=== PATIENT | male | born 1975 | race American Indian/Alaskan Native ===

== ENCOUNTER 2019-11-20 12:10 | Outpatient (CLI) | payer BC ==
--- NOTE | 2019-11-20 15:20 | XRay Report ---
CHEST 2 VIEWS INDICATION: SARCOIDOSIS. COMPARISON: None available. FINDINGS: Support devices: None. Heart: Within normal limits. Pulmonary vasculature and damaris: Indistinct pulmonary vessels and bilateral hilar fullness. A right hi lar mass measures 2+ centimeters. Lungs/pleura: Bilateral upper lobe reticular interstitial opacities. The lung bases are clear. No ple ural effusion. No pneumothorax. Additional findings: Dextroscoliosis. IMPRESSION: 1. A right hilar mass and bilateral upper lobe reticular interstitial opacities. 2. Recommend CT Chest for further evaluation of the right hilar mass. Signer Name: Karthik Rodríguez MD Signed: 11/20/2019 3:16 PM Workstation Name: [id number]
== END 2019-11-20 12:11 | disposition home or self-care (01) ==
LOC: XRAY 12:10
PROVIDERS: ATTEND Dermatology
DX: D86.0 Sarcoidosis of lung (principal); J98.4 Other disorders of lung
CPT/HCPCS: 71046

== ENCOUNTER 2019-11-25 12:16 | Outpatient (CLI) | payer BC | END 2019-11-25 12:17 | disposition home or self-care (01) | LOC: PF 12:16 | PROVIDERS: ATTEND Dermatology | DX: D86.0 Sarcoidosis of lung (principal) | CPT/HCPCS: 94010; 94726; 94727; 94729 ==

== ENCOUNTER 2020-05-13 12:22 | Outpatient (CLI) | payer BC ==
--- NOTE | 2020-05-13 14:37 | Cat Scan Report ---
CT CHEST WITHOUT CONTRAST INDICATION / CLINICAL INFORMATION: R91.8 Other nonspecific abnormal finding of lung field/. TECHNIQUE: Axial CT images were obtained through the chest without contrast. Sagittal and coronal reformatted im ages. All CT scans at this location are performed using CT dose reduction for ALARA by means of autom ated exposure control. COMPARISON: Chest x-ray 11/20/2019 FINDINGS: HEART: No significant abnormality. THORACIC AORTA: No significant abnormality. MEDIASTINUM and DANICA: There are multiple enlarged lymph nodes throughout the mediastinum including th e paratracheal chain, AP window, subcarinal chain and bilateral hilar chains. One of the largest lymp h nodes in the AP window measures 3.6 x 1.7 cm. LUNGS: Mild to moderate reticulonodular infiltrates are identified in both lungs, primarily the upper lung zones. No dominant lung mass or consolidation. PLEURA: No significant pleural effusion. No pneumothorax. SKELETAL SYSTEM: No suspicious bony lesion is detected. UPPER ABDOMEN: No significant abnormality. No obvious adenopathy. ADDITIONAL FINDINGS: None IMPRESSION: Multiple enlarged mediastinal lymph nodes and bilateral reticular nodular infiltrates primarily in t he upper lung zones. These findings suggest sarcoid although a neoplastic process is not excluded. Pl ease correlate with the patient's history. Correlation with previous CTs may prove helpful if availab le. Signer Name: Sunday Arroyo Jr, MD Signed: 05/13/2020 2:33 PM Workstation Name: [id number]
== END 2020-05-13 12:23 | disposition home or self-care (01) ==
LOC: CT 12:22
PROVIDERS: ATTEND Dermatology
DX: R91.8 Other nonspecific abnormal finding of lung field (principal)
CPT/HCPCS: 71250